=== PATIENT | female | born 1980 | race Two or more races ===

== ENCOUNTER 2021-05-10 19:31 | Emergency (ER) | payer OTHER ==
[~2021-05-10] VITALS: Ht 162.6 cm; Wt 99.8 kg
[~2021-05-10 19:31] MED LIST: COZAAR50 MG; INTEGRA PLUS C1 EACH PO; SYNTHROID200 MCG
[2021-05-10] MEDS ORDERED: BENICAR HCT 401 EAC1 (21:15)
[2021-05-10] MEDS ORDERED: SYNTHROID (21:15)
[2021-05-10] MEDS ORDERED: CIPRO500 MG (21:16)
[2021-05-10] MEDS ORDERED: [UNRECOGNIZED DRUG - OTHER] (21:17)
== END 2021-05-11 00:16 | disposition home or self-care (01) ==
LOC: ER 19:31
DX: N39.0 Urinary tract infection, site not specified (principal); R10.2 Pelvic and perineal pain; R39.9 Unspecified symptoms and signs involving the genitourinary system

== ENCOUNTER 2022-09-30 10:34 | Emergency (ER) | payer OTHER ==
[~2022-09-30] VITALS: Ht 162.6 cm; Wt 104.3 kg
[~2022-09-30 10:34] MED LIST changes: +BENICAR HCT 401 EAC1; +CIPRO500 MG; +SYNTHROID; +[UNRECOGNIZED DRUG - OTHER]
[2022-09-30] MEDS ORDERED: KETO10TA2 PO (14:54)
[2022-09-30] MEDS ORDERED: NORFLEX100MG PO (14:54)
== END 2022-09-30 15:27 | disposition home or self-care (01) ==
LOC: ER 10:34
DX: M54.2 Cervicalgia (principal); M54.50 Low back pain, unspecified; W19.XXXA Unspecified fall, initial encounter; Y93.9 Activity, unspecified; Y92.9 Unspecified place or not applicable

== ENCOUNTER 2025-07-03 16:52 | Emergency (ER) | payer OTHER ==
[~2025-07-03] VITALS: Ht 162.6 cm; Wt 104.3 kg
[~2025-07-03 16:52] MED LIST changes: +KETO10TA2 PO; +NORFLEX100MG PO
[2025-07-03] MEDS ORDERED: FAMOTIDINE/PF 20 MG in 0.9 % SODIUM CHLORIDE 8 ML IV PUSH ONE (20:15)
[2025-07-03] MEDS ORDERED: 0.9 % SODIUM CHLORIDE 1,000 ML IV SCH (20:15)
[2025-07-03] MEDS ORDERED: KETOROLAC TROMETHAMINE 30 MG VIAL IU ONE (20:15)
[2025-07-03] MEDS ORDERED: ONDANSETRON HCL 4 MG in 0.9 % SODIUM CHLORIDE 50 ML IV ONE (20:15)
[2025-07-03] MEDS ORDERED: ONDANSETRON HCL 2 MG/ML VIAL ONE (21:50)
[2025-07-03] MEDS ORDERED: KETOROLAC TROMETHAMINE 30 MG VIAL ONE (21:50)
[2025-07-03] MEDS ORDERED: FAMOTIDINE/PF 20 MG/2 ML VIAL ONE (21:50)
[2025-07-04 06:17] LABS: BASO % 0.5 % (0.1-1.2); EOS # 0.01 (0.04-0.54); EOS % 0.2 % (0.7-7.0); LYMPH # 0.55 (1.18-3.74); LYMPH % 13.2 % (19.3-53.1); MEAN PLATELET VOLUME 10.10 fl (9.4-12.4); MONO # 0.39 (0.24-0.82); MONO % 9.4 % (4.7-12.5); NEUT # 3.19 (1.56-6.13); NEUT % 76.5 % (34.0-71.1); RED CELL DISTRIBUTION WIDTH 13.5 % (11.6-14.4)
[2025-07-04 06:33] LABS: INR 1.04
[2025-07-04 07:14] LABS: ALT/SGPT 21.0 U/L (12-78); AST/SGOT 12.0 U/L (15-37); BILIRUBIN TOTAL 0.45 mg/dL (0.3-1.2); BUN CREA RATIO 26.0 (7.0-25.0); CREATININE SERUM 0.8 mg/dL (0.55-1.02); GFR 76.88; GLOBULINA 3.6 G/DL (2.4-3.5); GLUCOSE FASTING 121.0 mg/dL (65-100); OSMOLALITY SERUM 287.0 MOSM/KG (275-295)
[2025-07-04 08:54] LABS: URINE APPEARANCE Cloudy; URINE BILIRRUBIN Small (NEGATIVE); URINE BLOOD Negative; URINE COLOR Dark Yellow; URINE GLUCOSE Negative (NEGATIVE); URINE KETONE Negative (NEGATIVE); URINE LEUKOCYTE Negative; URINE NITRATE Negative; URINE PROTEIN 30 (NEGATIVE); URINE UROBILINOGEN 0.2 E.U./dl
[2025-07-04 09:06] LABS: URINE BACTERIA 118.9 uL (0.0-1933); URINE CAST 17.14 uL (0.0-1.40); URINE EPITHELIAL CELLS 49.0 uL (0.0-38.8); URINE RBC 13.0 uL (0.0-20.8); URINE WBC 14.2 uL (0.0-23.2)
[2025-07-04 10:20] LABS: URINE MUCUS HEAVY
[2025-07-04] MEDS ORDERED: PEPCID AC20 MG PO (10:40)
[2025-07-04] MEDS ORDERED: DICY20TA PO (10:40)
[2025-07-04] MEDS ORDERED: ZOFRAN8 MG PO (10:40)
== END 2025-07-04 11:20 | disposition home or self-care (01) ==
LOC: ER 16:53
PROVIDERS: General Practice
DX: R10.11 Right upper quadrant pain (principal); R11.10 Vomiting, unspecified; E03.8 Other specified hypothyroidism; R10.9 Unspecified abdominal pain; A08.8 Other specified intestinal infections; R10.31 Right lower quadrant pain; M79.605 Pain in left leg